=== PATIENT | female | born 1970 | race Caucasian/White ===

== ENCOUNTER 2017-07-25 12:46 | Emergency (ER) | payer MEDICARE, MEDICAID ==
--- NOTE | 2017-07-25 13:15 | RAD ---
FRONTAL VIEW CHEST: COMPARISON: 08/21/15. INDICATION: Chest pain. FINDINGS: There is no consolidation, effusion, or pneumothorax. Cardiac silhouette is mildly prominent. No si gnificant vascular congestion. No additional significant interval change. IMPRESSION: 1. No focal consolidation. 2. Prominent cardiac silhouette. Correlate clinically. POS: [facility]
[2017-07-25] MEDS ORDERED: Lidocaine Viscous Sol 2% 15 ml UD Cup ONE (13:27)
[2017-07-25] MEDS ORDERED: Mag-Al Plus 1200 MG/1200 MG/120 MG/30 ML UDCUP ONE (13:28)
[2017-07-25 13:31] LABS: #Basophils 0.1 thou/uL (0.0-0.2); #Lymphocytes 2.1 thou/uL (1.20-3.40); #Monocytes 0.9 thou/uL (0.11-0.59); #Neutrophils 8.3 thou/uL (1.40-6.50); %Eosinophils 0.3 % (0.0-10.0); %Lymphocytes 18.2 % (21.0-51.0); %Neutrophils 72.5 % (42.0-75.0); Hemoglobin 14.2 g/dL (12.0-16.0); Mean Corpuscular HGB CONC 32.8 g/dL (32.0-36.0); Mean Corpuscular Hemoglobin 27.5 pg (27.0-31.0); Mean Platelet Volume 8.2 fL (7.4-10.4); Platelet Count 327 thou/uL (130-400); RBC Distribution Width 13.1 % (11.5-14.5); Red Blood Cell (RBC) Count 5.17 mill/uL (4.20-5.40); White Blood Cell (WBC) Count 11.4 thou/uL (4.8-10.8)
[2017-07-25 13:48] LABS: CKMB 0.7 ng/mL (0-6.6); Troponin I Less than 0.010 ng/mL (< 0.028)
[2017-07-25 14:14] LABS: ALT (SGPT) 48 U/L (8-55); AST (SGOT) 33 U/L (5-34); Albumin 4.2 g/dL (3.5-5.0); Alkaline Phosphatase 50 U/L (40-150); Anion Gap 21 mmol/L (10-20); BUN (Urea Nitrogen) 43 mg/dL (7.0-18.7); Bilirubin, Total 0.3 mg/dL (0.2-1.2); CK (CPK) 21 U/L (29-168); Calc. Creatinine Clearance 0 mL/min (70-130); Calcium 9.8 mg/dL (7.8-10.44); Carbon Dioxide 22 mmol/L (22-29); Chloride 99 mmol/L (98-107); Estimated GFR-MDRD 41; Globulin 3.1 g/dL (2.4-3.5); Glucose 134 mg/dL (70-105); Lipase 51 U/L (8-78); Protein, Total 7.3 g/dL (6.0-8.3); Sodium 137 mmol/L (136-145)
[2017-07-25 16:55] LABS: Anion Gap 18 mmol/L (10-20)
[2017-07-25 17:02] LABS: Troponin I Less than 0.010 ng/mL (< 0.028)
[2017-07-25 17:06] LABS: BUN (Urea Nitrogen) 39 mg/dL (7.0-18.7); Calc. Creatinine Clearance 0 mL/min (70-130); Calcium 8.2 mg/dL (7.8-10.44); Carbon Dioxide 22 mmol/L (22-29); Chloride 105 mmol/L (98-107); Estimated GFR-MDRD 54; Glucose 51 mg/dL (70-105); Potassium 4.9 mmol/L (3.5-5.1); Sodium 140 mmol/L (136-145)
== END 2017-07-25 17:37 | disposition home or self-care (01) ==
LOC: SCSER 12:46
DX: R07.2 Precordial pain (principal); E11.9 Type 2 diabetes mellitus without complications; F32.9 Major depressive disorder, single episode, unspecified; M19.90 Unspecified osteoarthritis, unspecified site; Q90.9 Down syndrome, unspecified; Z79.82 Long term (current) use of aspirin; Z79.84 Long term (current) use of oral hypoglycemic drugs; Z79.899 Other long term (current) drug therapy
CPT/HCPCS: 71045; 80053; 82550; 82553; 83690; 84484; 85025; 93005; 96360; 96361

== ENCOUNTER 2017-10-11 18:59 | Emergency (ER) | payer MEDICARE, MEDICAID ==
[2017-10-11 19:40] LABS: Bilirubin Negative (Negative); Blood, Urine Negative (Negative); Clarity CLOUDY (Clear); Glucose, Urine (Dipstick) 100 mg/dL (Negative); Leukocyte Small (Negative); Nitrite Positive (Negative); Protein, Urine (Dipstick) Negative (Neg-Trace); Urobilinogen 0.2 mg/dL (0.2-1.0)
[2017-10-11 19:43] LABS: Bacteria/HPF 4+ HPF (None Seen); Hyaline Casts/LPF 0-3 HYALINE CAST LPF (0-3 Hyaline); Pathc Cast-AUWi Flag 0.14 (0-2.49); RBC/HPF 0-3 HPF (0-3); Squamous Epithelial 0-3 HPF (0-3); WBC/HPF 21-50 HPF (0-3)
[2017-10-11 20:11] LABS: #Eosinphils 0.1 thou/uL (0.0-0.7); #Lymphocytes 1.2 thou/uL (1.20-3.40); #Monocytes 0.6 thou/uL (0.11-0.59); #Neutrophils 8.4 thou/uL (1.40-6.50); %Basophils 0.4 % (0.0-1.0); %Eosinophils 1.3 % (0.0-10.0); %Lymphocytes 11.3 % (21.0-51.0); %Monocytes 5.5 % (0.0-10.0); %Neutrophils 81.6 % (42.0-75.0); Hemoglobin 11.2 g/dL (12.0-16.0); Mean Corpuscular HGB CONC 32.8 g/dL (32.0-36.0); Mean Corpuscular Volume 91.5 fl (81.0-99.0); Mean Platelet Volume 7.8 fL (7.4-10.4); Platelet Count 230 thou/uL (130-400); RBC Distribution Width 13.7 % (11.5-14.5); Red Blood Cell (RBC) Count 3.73 mill/uL (4.20-5.40); White Blood Cell (WBC) Count 10.3 thou/uL (4.8-10.8)
[2017-10-11 20:32] LABS: ALT (SGPT) 18 U/L (8-55); AST (SGOT) 13 U/L (5-34); Albumin 4.2 g/dL (3.5-5.0); Alkaline Phosphatase 27 U/L (40-150); Anion Gap 15 mmol/L (10-20); BUN (Urea Nitrogen) 20 mg/dL (7.0-18.7); Bilirubin, Total 0.2 mg/dL (0.2-1.2); Calc. Creatinine Clearance 0 mL/min (70-130); Calcium 9.4 mg/dL (7.8-10.44); Carbon Dioxide 21 mmol/L (22-29); Chloride 105 mmol/L (98-107); Estimated GFR-MDRD 56; Globulin 2.7 g/dL (2.4-3.5); Glucose 224 mg/dL (70-105); Lipase 48 U/L (8-78); Potassium 4.9 mmol/L (3.5-5.1); Protein, Total 6.9 g/dL (6.0-8.3); Sodium 136 mmol/L (136-145)
[2017-10-11] MEDS ORDERED: Ondansetron HCl/PF 4 MG/2 ML Vial ONE (21:49)
== END 2017-10-11 22:58 | disposition home or self-care (01) ==
LOC: ERS 18:59
DX: N39.0 Urinary tract infection, site not specified (principal); E11.9 Type 2 diabetes mellitus without complications; G40.909 Epilepsy, unspecified, not intractable, without status epilepticus; F32.9 Major depressive disorder, single episode, unspecified
CPT/HCPCS: 36415; 80053; 81003; 81015; 83605; 83690; 85025; 87077; 87086; 87186; 96361; 96374; 96375; J0696; J2405

== ENCOUNTER 2018-03-30 10:43 | Outpatient (CLI) | payer MEDICARE, MEDICAID | END 2018-03-30 10:44 | disposition home or self-care (01) | LOC: BICMAMMO 10:43 | PROVIDERS: ATTEND Family Medicine | DX: Z12.31 Encounter for screening mammogram for malignant neoplasm of breast (principal); R92.1 Mammographic calcification found on diagnostic imaging of breast | CPT/HCPCS: 77063; 77067 ==

== ENCOUNTER 2019-03-22 09:20 | Inpatient (IN) | payer MEDICARE, MEDICAID ==
[2019-03-22] MEDS ORDERED: Ketorolac Tromethamine 30 MG/ML VIAL ONE (09:41)
[2019-03-22 09:58] LABS: #Lymphocytes 0.8 thou/uL (1.20-3.40); #Monocytes 0.9 thou/uL (0.11-0.59); #Neutrophils 9.7 thou/uL (1.40-6.50); %Basophils 0.4 % (0.0-1.0); %Monocytes 7.7 % (0.0-10.0); %Neutrophils 84.9 % (42.0-75.0); Hemoglobin 11.5 g/dL (12.0-16.0); Mean Corpuscular HGB CONC 31.7 g/dL (32.0-36.0); Mean Corpuscular Hemoglobin 27.2 pg (27.0-31.0); Mean Corpuscular Volume 85.8 fL (78.0-98.0); Mean Platelet Volume 6.6 fL (7.4-10.4); Platelet Count 202 thou/uL (130-400); RBC Distribution Width 14.2 % (11.5-14.5); Red Blood Cell (RBC) Count 4.24 mill/uL (4.20-5.40); White Blood Cell (WBC) Count 11.5 thou/uL (4.8-10.8)
[2019-03-22 10:03] LABS: Bilirubin Small (Negative); Blood, Urine Moderate (Negative); Clarity Slightly Cloudy (Clear); Glucose, Urine (Dipstick) Negative (Negative); Leukocyte Small (Negative); Nitrite Negative (Negative); Protein, Urine (Dipstick) 30 mg/dL (Neg-Trace); Urobilinogen 0.2 mg/dL (Less than 2)
[2019-03-22 10:05] LABS: BHCG - Serum Negative (NEGATIVE); Pregs Control Background? CLEAR/WHITE (CLR/WHITE); Pregs Control Bar Appear? YES (CONTROL BAR)
[2019-03-22 10:09] LABS: ALT (SGPT) 14 U/L (8-55); AST (SGOT) 9 U/L (5-34); Albumin 4.2 g/dL (3.5-5.0); Alkaline Phosphatase 47 U/L (40-150); Anion Gap 20 mmol/L (10-20); BUN (Urea Nitrogen) 18 mg/dL (7.0-18.7); Bilirubin, Total 0.5 mg/dL (0.2-1.2); Calc. Creatinine Clearance 0 mL/min (70-130); Calcium 10.3 mg/dL (7.8-10.44); Carbon Dioxide 26 mmol/L (22-29); Chloride 98 mmol/L (98-107); Estimated GFR-MDRD 51; Glucose 190 mg/dL (70-105); Lipase 20 U/L (8-78); Potassium 4.8 mmol/L (3.5-5.1); Protein, Total 7.2 g/dL (6.0-8.3); Sodium 139 mmol/L (136-145)
[2019-03-22 10:11] LABS: Bacteria/HPF 3+ HPF (None Seen); Epithelial Cast None Seen LPF (None Seen); Squamous Epithelial 0-3 HPF (0-3)
[2019-03-22] MEDS ORDERED: Iopamidol 370 76% 100 ML VIAL ONE (10:48)
--- NOTE | 2019-03-22 11:00 | CT ---
CT Abdomen Pelvis W Con: 03/22/2019 9:42 AM CLINICAL INFORMATION: Abdominal pain and fever COMPARISON: 04/23/2016 TECHNIQUE: Multiple contiguous axial images were obtained and a CT of the abdomen and pelvis with IV contrast. C oronal and sagittal reformats were performed. FINDINGS: Lower Chest: within normal limits. Abdomen: Liver: within normal limits. Bile Ducts: Normal caliber. Gallbladder: No calcified gallstones. Normal caliber wall. Pancreas: within normal limits. Spleen: within normal limits. Adrenals: within normal limits. Kidneys: Stranding changes seen adjacent to the right kidney which could be secondary to pyelonephrit is. No significant abnormal nephrogram is seen at this time. A small subcentimeter hypodensity in the right kidney likely represents a small cyst. Pelvis: Reproductive Organs: No pelvic masses. Ureters: within normal limits. Bladder: within normal limits. Peritoneum: No ascites or free air, no fluid collection. Bowel: Normal caliber. Normal appendix. Mesentery and Retroperitoneum: No enlarged mesenteric or retroperitoneal lymph nodes. Vessels: Normal. Abdominal Wall: within normal limits. Bones: Degenerative changes in the spine. IMPRESSION: 1. Possible right pyelonephritis. Correlate with urinalysis. 2. Right renal cyst
[2019-03-22] MEDS ORDERED: cefTRIAXone\\ROCEPHIN 1 GM VIAL ONE (11:14)
[2019-03-22] MEDS ORDERED: Sodium Chloride 0.9% 100 ML ONE (11:15)
[2019-03-22] MEDS ORDERED: Sodium Chloride 0.9% 0 ML ONE (11:15)
[2019-03-22 14:46] VITALS: BMI 30.2
[2019-03-22] MEDS ORDERED: Ondansetron ODT 4 MG TAB SL PRN (15:03)
[2019-03-22] MEDS ORDERED: Ondansetron PF 4 MG/2 ML Vial IVP PRN ×2 (15:03→17:55)
[2019-03-22] MEDS ORDERED: Acetaminophen 325 MG TAB PO PRN (15:03)
[2019-03-22] MEDS ORDERED: Lactated Ringer's 1,000 ML IV SCH (15:15)
[2019-03-22] MEDS ORDERED: Ondansetron ODT 4 MG TAB PO PRN (17:55)
[2019-03-22] MEDS ORDERED: Acetaminophen 650 MG Suppository PR PRN (17:55)
[2019-03-22] MEDS ORDERED: Alendronate Sodium 70 mg Tablet PO SCH (18:00)
[2019-03-22] MEDS ORDERED: Sodium Chloride 0.9% 1,000 ML IV SCH (18:15)
[2019-03-22] MEDS ORDERED: Famotidine/PF 20 mg/2ml Vial SLOW IVP SCH (21:00)
[2019-03-22] MEDS ORDERED: Non-Formulary Item 1 EACH (Lovastatin [Lovastatin] 20 MG) PO SCH (21:00)
[2019-03-22] MEDS ORDERED: HumaLOG 300 UNITS/3 ML VIAL SC PRN ×2 (21:03)
[2019-03-22] MEDS ORDERED: Dextrose 50% Abboject 50 ML SYRINGE SLOW IVP PRN (21:03)
[2019-03-22] MEDS ORDERED: Dextrose 5% in Water 1,000 ML IV PRN (21:03)
[2019-03-22] MEDS: Ammonium Lactate 12% Lotion 225 GM BOT TOP SCH (21:24)
[2019-03-22] MEDS: Simvastatin 5 MG TAB PO SCH (21:25)
[2019-03-22] MEDS: Acetaminophen 325 MG TAB PO PRN (21:25)
[2019-03-22] MEDS: Fluticasone Propionate Nasal Spray 16 gm Bottle NASAL SCH (21:25)
[2019-03-22] MEDS: DULoxetine 60 MG CAP PO SCH (21:25)
[2019-03-22] MEDS: CeleCOXIB 100 MG CAP PO SCH (21:25)
[2019-03-22] MEDS: Metoprolol Tartrate 100 MG TAB PO SCH (21:25)
--- NOTE | 2019-03-22 21:59 | HP ---
PRIMARY CARE PHYSICIAN: Dr. Melvin Padilla. CHIEF COMPLAINT: "Feeling sick." HISTORY OF PRESENT ILLNESS: Ms. Paulson is a very pleasant 48-year-old woman, with mild learning disability, but is fully oriented and able to communicate. The patient states she started to feel unwell yesterday evening. Reports having pain on her right side. States she has felt nauseous since yesterday evening, but has not had any vomiting. According to her sister, she has known chronic kidney disease and tends to do poorly about taking an enough fluid intake unless prompted. She is a resident . She was reported to have had a fever this morning of 101.2, therefore brought to the emergency department. In the ER, she was complaining of right lower quadrant discomfort. She underwent laboratory studies, which were notable for an elevated white count of 11.5, creatinine of 1.14, slightly bumped from previous laboratory studies done. GFR appeared stable at 51. Lactic acid was normal at 1.7. LFTs unremarkable and lipase also normal. A urinalysis was done and showed 30 of protein, trace ketones, moderate blood, small bilirubin, small leukocyte esterase, 4 to 6 red blood cells, 7 to 10 white blood cells, 3+ urine bacteria. The patient underwent a CT of the abdomen and pelvis, which demonstrated a possible right pyelonephritis as well as a right renal cyst. The patient was given Toradol for her pain, which she states brought the pain down from a 6/10 in severity to a 2/10. She was started on Rocephin 1 g IV. In the emergency department, her vitals remained stable and her temperature improved to 98.6. She was given IV fluids as well. An EKG was done showing sinus tachycardia with a heart rate of 111. ST segments are normal and there were no T-wave abnormalities. She has remained slightly tachycardic in the low 100s before coming up to the floor. PAST MEDICAL HISTORY: 1. Mild MR. 2. Type 2 diabetes mellitus. 3. Osteoporosis. 4. History of seizures, controlled with medications. 5. History of UTI/pyelonephritis. 6. Depression. PAST SURGICAL HISTORY: Toenail removal. ALLERGIES: NO KNOWN DRUG ALLERGIES. CURRENT MEDICATIONS: 1. Alendronate sodium. 2. Ammonium lactate cream. 3. Aspirin. 4. Calcium citrate. 5. Celecoxib. 6. Vitamin D3. 7. Duloxetine. 8. Fenofibrate. 9. Flonase. 10. Glimepiride. 11. Ipratropium. 12. Losartan. 13. Lovastatin. 14. Metformin. 15. Metoprolol. 16. Multivitamin. 17. Pantoprazole. 18. Phenytoin. 19. Florastor. PHYSICAL EXAMINATION: GENERAL: The patient appears to be in no acute distress. She is resting comfortably in bed. HEENT: Normocephalic and atraumatic. Pupils are reactive to light. Sclerae without icterus. Oropharynx notable for poor dentition and stomatitis. Oral mucosa is dry. NECK: Supple. No tenderness to palpation. No cervical spine tenderness. Full range of motion. LUNGS: Clear to auscultation without wheezes, rales, or rhonchi. CARDIAC: Regular rate and rhythm. ABDOMEN: Soft. Mild discomfort with palpation to the right flank region. No guarding or rigidity. EXTREMITIES: No lower leg swelling or edema. NEUROLOGIC: Alert and oriented x3. SKIN: Without rash or jaundice. Does feel warm. VITAL SIGNS: Temperature 99, pulse 110, respirations 21, O2 saturations 94% on room air, blood pressure 120/76. INVESTIGATIONS: As mentioned above in HPI. IMPRESSION AND PLAN: Ms. Paulson is a pleasant 48-year-old woman, who presents with complaints of right flank pain and fever. She is being referred for management of the following. 1. Right pyelonephritis. We will continue IV antibiotics and give IV fluids. Urinalysis done, but urine culture is pending. Previous urine cultures were positive for Escherichia coli and pansensitive to antibiotics. The patient also dehydrated. Again, we will continue with gentle IV hydration and monitor renal function. 2. Tachycardia, likely associated with her low-grade fever. We will give Tylenol and monitor. We will also obtain a baseline chest x-ray to rule out any underlying pneumonia. 3. Hypertension. We will resume home medications once verified. Monitor blood pressure. 4. Diabetes mellitus. We will hold medications given acute kidney injury. We will initiate insulin sliding scale. 5. Gastrointestinal prophylaxis. We will resume her home dose of Protonix. 6. Deep venous thrombosis prophylaxis. Mechanical SCDs. 7. Code status, full. Her surrogate decision maker is her sister. I asked for her name and she stated it is listed in the chart. Unfortunately, I have not been able to locate her name on file. The patient's case was discussed with attending, who agrees with the plan of care as described above. Job ID: [id number]
--- NOTE | 2019-03-22 22:54 | RAD ---
RADIOGRAPH CHEST 2 VIEWS: DATE: 03/22/2019 HISTORY: 48-year-old female with cough and tachycardia FINDINGS: There is no airspace density, pulmonary edema, pleural effusion, pneumothorax, or cardiomegaly. Mild blunting of the posterior costophrenic angles demonstrated on the lateral view is due to fat pads at the posterior pleural diaphragmatic interface is as demonstrated on the abdominal CT this morning, and should not be mistaken for tiny bilateral pleural effusions. IMPRESSION: No acute cardiopulmonary findings.
[2019-03-23] MEDS: Sodium Chloride 0.9% 1,000 ML IV SCH ×2 (05:37→09:40)
[2019-03-23] MEDS ORDERED: Non-Formulary Item 1 EACH (Fenofibrate [Fenofibrate] 160 MG) PO SCH (09:00)
[2019-03-23] MEDS: Saccharomyces boulardii 250 MG CAP PO SCH (09:38)
[2019-03-23] MEDS: Aspirin 81 mg Enteric Coated Tablet PO SCH (09:38)
[2019-03-23] MEDS: Fenofibrate Nanocrystallized 145 MG TAB PO SCH (09:38)
[2019-03-23] MEDS: Calcium Citrate 950 MG TAB PO SCH (09:39)
[2019-03-23] MEDS: Metoprolol Tartrate 100 MG TAB PO SCH ×2 (09:39→20:10)
[2019-03-23] MEDS: Fluticasone Propionate Nasal Spray 16 gm Bottle NASAL SCH ×2 (09:41→20:18)
[2019-03-23 10:42] LABS: #Eosinphils 0.1 thou/uL (0.0-0.7); #Lymphocytes 0.5 thou/uL (1.20-3.40); #Monocytes 0.6 thou/uL (0.11-0.59); #Neutrophils 6.2 thou/uL (1.40-6.50); %Basophils 0.4 % (0.0-1.0); %Eosinophils 0.8 % (0.0-10.0); %Lymphocytes 6.9 % (21.0-51.0); %Monocytes 8.4 % (0.0-10.0); %Neutrophils 83.5 % (42.0-75.0); Hemoglobin 10.9 g/dL (12.0-16.0); Mean Corpuscular HGB CONC 32.5 g/dL (32.0-36.0); Mean Corpuscular Hemoglobin 28.3 pg (27.0-31.0); Mean Corpuscular Volume 87.1 fL (78.0-98.0); Mean Platelet Volume 7.7 fL (7.4-10.4); Platelet Count 186 thou/uL (130-400); RBC Distribution Width 13.5 % (11.5-14.5); Red Blood Cell (RBC) Count 3.87 mill/uL (4.20-5.40); White Blood Cell (WBC) Count 7.5 thou/uL (4.8-10.8)
[2019-03-23 10:55] LABS: Anion Gap 15 mmol/L (10-20); BUN (Urea Nitrogen) 13 mg/dL (7.0-18.7); Calc. Creatinine Clearance 75 mL/min (70-130); Calcium 8.8 mg/dL (7.8-10.44); Carbon Dioxide 20 mmol/L (22-29); Chloride 103 mmol/L (98-107); Estimated GFR-MDRD 65; Glucose 141 mg/dL (70-105); Sodium 134 mmol/L (136-145)
[2019-03-23] MEDS ORDERED: Mag-Al 1200 mg/1200 mg/30 ML UDCUP PO SCH (11:00)
[2019-03-23] MEDS: cefTRIAXone\\ROCEPHIN 1 GM in Sodium Chloride 0.9% 100 ML IVPB SCH (12:21)
--- NOTE | 2019-03-23 15:07 | PDOC.HOSPP ---
- Subjective Encounter Date: 03/23/19 Encounter Time: 08:00 Subjective: still has nausea, no abd pain ate her breakfast sister at bedside - Objective Vital Signs & Weight: Vital Signs (12 hours) Temp Pulse Resp BP BP Pulse Ox 03/23/19 12:00 98 F 100 16 98/57 L 94 L 03/23/19 08:00 94 L 03/23/19 07:43 98.8 F 98 17 104/63 94 L 03/23/19 04:00 98.2 F 95 18 106/66 91 L Weight Weight 140 lb I&O: 03/22/19 03/23/19 03/24/19 06:59 06:59 06:59 Intake Total 5 240 Balance 2094 240 Result Diagrams: 03/23/19 10:29 03/23/19 10:29 Additional Labs: Accuchecks 03/23/19 03/23/19 03/22/19 12:02 04:36 19:36 POC Glucose 148 H 123 H 163 H Hospitalist ROS - Medication Medications: Active Medications Generic Name Dose Route Start Last Admin Trade Name Freq PRN Reason Stop Dose Admin Acetaminophen 650 mg 03/22/19 17:55 03/22/19 21:25 Tylenol PO 650 mg Q4H PRN Administration Headache/Fever/Mild Pain (1-3) Ammonium Lactate 0 gm 03/22/19 21:00 03/22/19 21:24 Laclotion TOP 1 gm HS RAMIRO Administration Aspirin 81 mg 03/23/19 09:00 03/23/19 09:38 Ecotrin PO 81 mg DAILY RAMIRO Administration Calcium Citrate 950 mg 03/23/19 09:00 03/23/19 09:39 Calcium Citrate PO 950 mg DAILY RAMIRO Administration Celecoxib 200 mg 03/22/19 21:00 03/22/19 21:25 Celebrex PO 200 mg HS RAMIRO Administration Duloxetine HCl 60 mg 03/22/19 21:00 03/22/19 21:25 Cymbalta PO 60 mg QPM RAMIRO Administration Fenofibrate 145 mg 03/23/19 09:00 03/23/19 09:38 Tricor PO 145 mg DAILY RAMIRO Administration Fluticasone Propionate 0 gm 03/22/19 21:00 03/23/19 09:41 Flonase Nasal Bruno NASAL 1 spr BID RAMIRO Administration Ceftriaxone Sodium 1 gm/ 100 mls @ 200 mls/hr 03/23/19 11:30 03/23/19 12:21 Sodium Chloride IVPB 100 mls Q24HR RAMIRO Administration Sodium Chloride 1,000 mls @ 65 mls/hr 03/22/19 21:08 03/23/19 09:40 Normal Saline 0.9% IV 1,000 mls .[id number] RAMIRO Administration Metoprolol Tartrate 100 mg 03/22/19 21:00 03/23/19 09:39 Lopressor PO 100 mg BID RAMIRO Administration Pantoprazole Sodium 40 mg 03/23/19 09:00 03/23/19 09:38 Protonix PO 40 mg DAILY RAMIRO Administration Phenytoin Sodium 300 mg 03/23/19 09:00 03/23/19 09:38 Dilantin Er PO 300 mg QAM RAMIRO Administration Saccharomyces Boulardii 250 mg 03/23/19 09:00 03/23/19 09:38 Florastor PO 250 mg DAILY RAMIRO Administration Simvastatin 10 mg 03/22/19 21:00 03/22/19 21:25 Zocor PO 10 mg HS RAMIRO Administration - Exam General Appearance: NAD, awake alert Eye: PERRL, anicteric sclera ENT: no oropharyngeal lesions, dry oral mucosa Neck: supple, no JVD Heart: RRR, no murmur Respiratory: no wheezes, no rales Gastrointestinal: soft, non-tender, normal bowel sounds Extremities: no cyanosis, no edema Neurological: CN's grossly intact, no focal deficits Hosp A/P (1) Pyelonephritis Code(s): N12 - TUBULO-INTERSTITIAL NEPHRITIS, NOT SPCF ACUTE OR CHRONIC Status: Acute (2) Sepsis Code(s): A41.9 - SEPSIS, UNSPECIFIED ORGANISM Status: Acute Qualifiers: Sepsis type: Escherichia coli (3) DM type 2 (diabetes mellitus, type 2) Status: Chronic Qualifiers: Diabetes mellitus senior living insulin use: without senior living use (4) Obesity (BMI 30.0-34.9) Code(s): E66.9 - OBESITY, UNSPECIFIED Status: Chronic (5) Seizure disorder Code(s): G40.909 - EPILEPSY, UNSP, NOT INTRACTABLE, WITHOUT STATUS EPILEPTICUS Status: Chronic (6) Dyslipidemia Code(s): E78.5 - HYPERLIPIDEMIA, UNSPECIFIED Status: Chronic (7) Down syndrome Code(s): Q90.9 - DOWN SYNDROME, UNSPECIFIED Status: Chronic (8) Hypertension Code(s): I10 - ESSENTIAL (PRIMARY) HYPERTENSION Status: Chronic Qualifiers: Hypertension type: essential hypertension Qualified Code(s): I10 - Essential (primary) hypertension - Plan is on ceftriaxone await full culture results, prelim is growing klebsiella/enterobacter continue iv fluids x 24hrs encourage po intake to ambulate as tolerated in hallway continue asp, cozaar, lopressor, zocor, tricor, phenytoin, cymbalta
[2019-03-23] MEDS: Losartan 25 MG TAB PO SCH (16:46)
[2019-03-23] MEDS: Simvastatin 5 MG TAB PO SCH (20:10)
[2019-03-23] MEDS: CeleCOXIB 100 MG CAP PO SCH (20:10)
[2019-03-23] MEDS: DULoxetine 60 MG CAP PO SCH (20:10)
[2019-03-23] MEDS: Acetaminophen 325 MG TAB PO PRN (20:11)
[2019-03-23] MEDS: Ammonium Lactate 12% Lotion 225 GM BOT TOP SCH (20:18)
[2019-03-24] MEDS: Sodium Chloride 0.9% 1,000 ML IV SCH (03:40)
[2019-03-24 08:03] VITALS: BP 106/68; TEMP 98
[2019-03-24] MEDS: Aspirin 81 mg Enteric Coated Tablet PO SCH (08:42)
[2019-03-24] MEDS: Saccharomyces boulardii 250 MG CAP PO SCH (08:42)
[2019-03-24] MEDS: Fenofibrate Nanocrystallized 145 MG TAB PO SCH (08:42)
[2019-03-24] MEDS: Fluticasone Propionate Nasal Spray 16 gm Bottle NASAL SCH (08:43)
[2019-03-24] MEDS: Losartan 25 MG TAB PO SCH (08:43)
[2019-03-24] MEDS: Metoprolol Tartrate 100 MG TAB PO SCH (08:43)
[2019-03-24] MEDS: Calcium Citrate 950 MG TAB PO SCH (08:53)
[2019-03-24] MEDS: cefTRIAXone\\ROCEPHIN 1 GM in Sodium Chloride 0.9% 100 ML IVPB SCH (14:01)
--- NOTE | 2019-03-24 15:17 | DIS ---
DATE OF ADMISSION: 03/22/2019 DATE OF DISCHARGE: 03/24/2019 DISCHARGE DISPOSITION: [facility]. PRIMARY DISCHARGE DIAGNOSES: Pyelonephritis, sepsis, both resolving. SECONDARY DISCHARGE DIAGNOSES: Diabetes mellitus type 2, history of mild intellectual disability with Down syndrome, dyslipidemia, seizure disorder, obesity, hypertension. PROCEDURES DONE DURING HOSPITALIZATION: Chest x-ray done showed no acute cardiopulmonary abnormality. CT abdomen and pelvis with contrast done showed right pyelonephritis. Urine culture grew Klebsiella pneumoniae sensitive to all antibiotics except Macrobid. Blood cultures x2, no growth. Stool for Campylobacter and Shiga toxin were negative. Hemoglobin and hematocrit 11 and 33, platelet count 186. White count of 7.5, BUN 13, creatinine 0.9. Serum test was negative. DISCHARGE MEDICATIONS: 1. Fosamax 70 mg p.o. once weekly. 2. Aspirin 81 mg p.o. daily. 3. Calcium citrate 600 mg p.o. daily. 4. Celecoxib 200 mg p.o. at bedtime. 5. Vitamin D3 2000 units p.o. daily. 6. Duloxetine 60 mg p.o. q.p.m. 7. Fenofibrate 160 mg p.o. daily. 8. Glimepiride 1 mg p.o. q.a.m. 9. Losartan 25 mg p.o. daily. 10. Lovastatin 20 mg p.o. at bedtime. 11. Metformin 1000 mg twice daily. 12. Metoprolol 100 mg p.o. twice daily. 13. Multivitamin one tablet once daily. 14. Protonix 40 mg p.o. daily. 15. Phenytoin extended-release 300 mg p.o. q.a.m. 16. Levaquin 500 mg p.o. daily for another 6 days. 17. Florastor 250 mg p.o. daily. ALLERGIES: NO KNOWN DRUG ALLERGIES. DISCHARGE PLAN: The patient to follow up with her primary care physician in 1 week. BRIEF COURSE DURING HOSPITALIZATION: [facility] after she was feeling sick. She also had a temperature 101.2 degrees. Initial workup in the ER revealed right-sided pyelonephritis with urinary tract infection and sepsis. The patient was pancultured and was admitted to medical floor. She has had fluid resuscitation done due to moderate dehydration as well. Her cultures grew Klebsiella sensitive to all antibiotics except Macrobid. She was on IV antibiotics, which has been transitioned to Levaquin for another 6 days. She has started to eat like before with no nausea or vomiting. She has not had any abdominal pain on the day of discharge. She was placed on her home medications and is hemodynamically stable. Please note, I have seen and examined the patient on the day of discharge. She is hemodynamically stable and will be shortly [facility] to [facility]. Job ID: [id number] MTDD
== END 2019-03-24 15:16 | disposition home or self-care (01) | DRG 872 ==
LOC: SCSER 09:20 → T4-A 14:21
PROVIDERS: ADMIT Internal Medicine; ATTEND Internal Medicine
DX: A41.9 Sepsis, unspecified organism (principal); N10 Acute pyelonephritis; E11.9 Type 2 diabetes mellitus without complications; M81.0 Age-related osteoporosis without current pathological fracture; G40.909 Epilepsy, unspecified, not intractable, without status epilepticus; E78.5 Hyperlipidemia, unspecified; F32.9 Major depressive disorder, single episode, unspecified; F70 Mild intellectual disabilities; B96.1 Klebsiella pneumoniae [K. pneumoniae] as the cause of diseases classified elsewhere; Z16.24 Resistance to multiple antibiotics; E66.9 Obesity, unspecified; Q90.9 Down syndrome, unspecified; Z79.899 Other long term (current) drug therapy; Z79.82 Long term (current) use of aspirin; Z79.84 Long term (current) use of oral hypoglycemic drugs; Z68.30 Body mass index [BMI] 30.0-30.9, adult
CPT/HCPCS: 36415; 36416; 71046; 74177; 80048; 80053; 81003; 81015; 83605; 83630; 83690; 84703; 85025; 87040; 87045; 87046; 87077; 87086; 87186; 87328; 87329; 87427; 87449; 93005; 96361; 96365; 96375; J0696; J1885; J3490; Q9967

== ENCOUNTER 2019-08-17 08:54 | Outpatient (CLI) | payer MEDICARE, MEDICAID ==
--- NOTE | 2019-08-18 10:12 | MMO ---
Bilateral MAMMO Bilat Screen [facility]PANK[facility]. CLINICAL HISTORY: Patient is 49 years old and is seen for screening. The patient has no family history of breast cancer. The patient has no personal history of cancer. VIEWS: The views performed were: bilateral craniocaudal with tomosynthesis and bilateral mediolateral oblique with tomosynthesis. FILMS COMPARED: The present examination has been compared to prior imaging studies performed at [facility] on 02/08/2015, 02/14/2016, 03/26/2017 and 03/30/2018. This study has been interpreted with the assistance of computer-aided detection. MAMMOGRAM FINDINGS: The breasts are heterogeneously dense, which could obscure a lesion on mammography. There are no suspicious masses, suspicious calcifications, or new areas of architectural distortion. IMPRESSION: THERE IS NO MAMMOGRAPHIC EVIDENCE OF MALIGNANCY. A ROUTINE FOLLOW-UP MAMMOGRAM IN 1 YEAR IS RECOMMENDED. THE RESULTS OF THIS EXAM WERE SENT TO THE PATIENT. ACR BI-RADS Category 1 - Negative MAMMOGRAPHY NOTE: 1. A negative mammogram report should not delay a biopsy if a dominant of clinically suspicious mass is present. 2. Approximately 10% to 15% of breast cancers are not detected by mammography. 3. Adenosis and dense breasts may obscure an underlying neoplasm. Reported by: MONA MENDEZ MD Electonically Signed: [id number]
== END 2019-08-17 08:55 | disposition home or self-care (01) ==
LOC: BICMAMMO 08:54
PROVIDERS: ATTEND Family Medicine
DX: Z12.31 Encounter for screening mammogram for malignant neoplasm of breast (principal)
CPT/HCPCS: 77063; 77067

== ENCOUNTER 2020-09-20 10:20 | Outpatient (CLI) | payer MEDICARE, MEDICAID | END 2020-09-20 10:21 | disposition home or self-care (01) | LOC: BICMAMMO 10:20 | PROVIDERS: ATTEND Physician Assistant | DX: Z12.31 Encounter for screening mammogram for malignant neoplasm of breast (principal) | CPT/HCPCS: 77063; 77067 ==

== ENCOUNTER 2021-01-23 12:45 | Outpatient (CLI) | payer MEDICARE, MEDICAID | END 2021-01-23 12:46 | disposition home or self-care (01) | LOC: BICULT 12:45 | DX: N18.30 Chronic kidney disease, stage 3 unspecified (principal) | CPT/HCPCS: 76770 ==

== ENCOUNTER 2021-12-11 09:52 | Outpatient (CLI) | payer MEDICARE, MEDICAID | END 2021-12-11 09:53 | disposition home or self-care (01) | LOC: BICMAMMO 09:52 | PROVIDERS: ATTEND Physician Assistant | DX: Z12.31 Encounter for screening mammogram for malignant neoplasm of breast (principal) | CPT/HCPCS: 77063; 77067 ==

== ENCOUNTER 2023-03-19 10:41 | Outpatient (CLI) | payer MEDICARE, MEDICAID | END 2023-03-19 10:42 | disposition home or self-care (01) | LOC: BICMAMMO 10:41 | PROVIDERS: ATTEND Physician Assistant | DX: Z12.31 Encounter for screening mammogram for malignant neoplasm of breast (principal) | CPT/HCPCS: 77063; 77067 ==

== ENCOUNTER 2025-01-09 22:01 | Observation (INO) | payer MEDICARE, MEDICAID ==
[~2025-01-09 22:01] MED LIST: Iopamidol-370 76% 500 ML MDV (1 ML CHARGE) ONE
[2025-01-09 23:38] LABS: #Basophils Less than 0.03 10x3/uL (0.0-0.2); #Eosinophils 0.04 10x3/uL (0.0-0.7); #Monocytes 0.77 10x3/uL (0.11-0.59); #Neutrophils 5.90 10x3/uL (1.40-6.50); %Basophils 0.3 % (0.0-1.0); %Eosinophils 0.5 % (0.0-10.0); %Lymphocytes 14.1 % (21.0-51.0); %Monocytes 9.7 % (0.0-10.0); %Neutrophils 74.1 % (42.0-75.0); Hematocrit 32.5 % (36.0-47.0); Hemoglobin 10.6 g/dL (12.0-16.0); Mean Corpuscular Hemoglobin 31.0 pg (27.0-31.0); Mean Corpuscular Volume 95.0 fL (78.0-98.0); Platelet Count 254 10x3/uL (130-400); Red Blood Cell (RBC) Count 3.42 mill/uL (4.20-5.40); White Blood Cell (WBC) Count 7.95 10x3/uL (4.8-10.8)
[2025-01-10 00:16] LABS: ALT (SGPT) 12 U/L (Less than 34); AST (SGOT) 22 U/L (11-34); Albumin 3.6 g/dL (3.1-4.5); Alkaline Phosphatase 25 U/L (40-110); Anion Gap 15 mmol/L (10-20); BUN (Urea Nitrogen) 51 mg/dL (9.8-20.1); Bilirubin, Total 0.5 mg/dL (0.3-1.2); Calc. Creatinine Clearance 0 mL/min (70-130); Calcium 9.0 mg/dL (7.8-10.44); Carbon Dioxide 26 mmol/L (22-29); Chloride 102 mmol/L (98-107); Globulin 3.0 g/dL (2.4-3.5); Glucose 99 mg/dL (70-105); Potassium 6.4 mmol/L (3.5-5.1); Sodium 137 mmol/L (136-145)
[2025-01-10] MEDS ORDERED: CALCIUM GLUC 1 GM/NS 50 ML IV Bag ONE (00:40)
[2025-01-10 04:44] LABS: ALT (SGPT) 10 U/L (Less than 34); AST (SGOT) 20 U/L (11-34); Albumin 2.8 g/dL (3.1-4.5); Alkaline Phosphatase 18 U/L (40-110); Anion Gap 11 mmol/L (10-20); BUN (Urea Nitrogen) 47 mg/dL (9.8-20.1); Bilirubin, Total 0.3 mg/dL (0.3-1.2); Calc. Creatinine Clearance 0 mL/min (70-130); Calcium 8.1 mg/dL (7.8-10.44); Carbon Dioxide 22 mmol/L (22-29); Chloride 109 mmol/L (98-107); Globulin 2.3 g/dL (2.4-3.5); Glucose 56 mg/dL (70-105); Potassium 5.7 mmol/L (3.5-5.1); Sodium 136 mmol/L (136-145)
[2025-01-10] MEDS ORDERED: Senokot S 8.6-50 MG TAB PO PRN (07:42)
[2025-01-10] MEDS ORDERED: Ondansetron PF 4 MG/2 ML Vial IVP PRN (07:42)
[2025-01-10] MEDS ORDERED: Dextrose 50% Abboject 50 ML SYRINGE SLOW IVP PRN (08:52)
[2025-01-10] MEDS ORDERED: Glucagon 1 MG/ML KIT IM PRN (08:52)
[2025-01-10] MEDS: Phenytoin Extended Release 100 MG CAP PO SCH (09:29)
[2025-01-10] MEDS: Pantoprazole 40 MG DR.TAB PO SCH (09:29)
[2025-01-10 09:51] LABS: Anion Gap 12 mmol/L (10-20); BUN (Urea Nitrogen) 40 mg/dL (9.8-20.1); Calc. Creatinine Clearance 0 mL/min (70-130); Calcium 8.5 mg/dL (7.8-10.44); Carbon Dioxide 21 mmol/L (22-29); Chloride 110 mmol/L (98-107); Glucose 146 mg/dL (70-105); Potassium 5.6 mmol/L (3.5-5.1); Sodium 137 mmol/L (136-145)
[2025-01-10 10:18] VITALS: BMI 25.6
[2025-01-10] MEDS: LOKELMA 10 GM PACKET PO SCH (12:05)
[2025-01-10] MEDS: Acetaminophen 325 MG TAB PO PRN (12:09)
[2025-01-10 18:32] LABS: Anion Gap 10 mmol/L (10-20); BUN (Urea Nitrogen) 33 mg/dL (9.8-20.1); Calc. Creatinine Clearance 36 mL/min (70-130); Calcium 7.9 mg/dL (7.8-10.44); Carbon Dioxide 23 mmol/L (22-29); Chloride 107 mmol/L (98-107); Glucose 217 mg/dL (70-105); Potassium 4.9 mmol/L (3.5-5.1); Sodium 135 mmol/L (136-145)
[2025-01-10] MEDS: Calcium Carbonate 500 MG ChewTAB PO PRN (18:33)
[2025-01-11] MEDS: LOKELMA 10 GM PACKET PO SCH (00:35)
[2025-01-11 04:53] LABS: #Basophils Less than 0.03 10x3/uL (0.0-0.2); #Eosinophils 0.06 10x3/uL (0.0-0.7); #Monocytes 0.39 10x3/uL (0.11-0.59); #Neutrophils 2.77 10x3/uL (1.40-6.50); %Basophils 0.2 % (0.0-1.0); %Eosinophils 1.5 % (0.0-10.0); %Lymphocytes 19.8 % (21.0-51.0); %Monocytes 9.5 % (0.0-10.0); %Neutrophils 67.5 % (42.0-75.0); Hematocrit 27.9 % (36.0-47.0); Hemoglobin 8.8 g/dL (12.0-16.0); Mean Corpuscular Hemoglobin 29.7 pg (27.0-31.0); Mean Corpuscular Volume 94.3 fL (78.0-98.0); Platelet Count 185 10x3/uL (130-400); Red Blood Cell (RBC) Count 2.96 mill/uL (4.20-5.40); White Blood Cell (WBC) Count 4.10 10x3/uL (4.8-10.8)
[2025-01-11 05:11] LABS: Anion Gap 10 mmol/L (10-20); BUN (Urea Nitrogen) 24 mg/dL (9.8-20.1); Calc. Creatinine Clearance 42 mL/min (70-130); Calcium 7.7 mg/dL (7.8-10.44); Carbon Dioxide 30 mmol/L (22-29); Chloride 101 mmol/L (98-107); Glucose 148 mg/dL (70-105); Potassium 3.7 mmol/L (3.5-5.1); Sodium 137 mmol/L (136-145)
[2025-01-11] MEDS: Losartan 25 MG TAB PO SCH (08:54)
[2025-01-11] MEDS: Cholecalciferol 1,000 UNITS (25 MCG) TAB PO SCH (08:54)
[2025-01-11] MEDS: Aspirin 81 mg Enteric Coated Tablet PO SCH (08:54)
[2025-01-11] MEDS ORDERED: Non-Formulary Item 1 EACH (Fluticasone Propionate [Flonase Allergy Relief] 9.9 ML Bottle) EA NARE SCH (09:00)
[2025-01-11] MEDS ORDERED: MAGNESIUM PO SCH (09:00)
[2025-01-11] MEDS ORDERED: Non-Formulary Item 1 EACH (Cholecalciferol (Vitamin D3) [Vitamin D3] 2,000 UNIT Tablet) PO SCH (09:00)
[2025-01-11] MEDS ORDERED: [UNRECOGNIZED DRUG - OTHER] PO SCH (09:00)
[2025-01-11] MEDS ORDERED: MAGNESIUM OXIDE PO SCH (09:00)
[2025-01-11] MEDS: Calcium Citrate 950 MG (200MG) TAB PO SCH (10:50)
[2025-01-11] MEDS: metFORMIN 500 MG TAB PO SCH (16:27)
[2025-01-11] MEDS ORDERED: Non-Formulary Item 1 EACH (Metformin Hcl [Metformin Hcl] 1,000 MG Tablet) PO SCH (17:00)
[2025-01-11] MEDS ORDERED: Non-Formulary Item 1 EACH (Fenofibrate [Fenofibrate] 160 MG Tablet) PO SCH (21:00)
[2025-01-11] MEDS ORDERED: AMMONIUM LACTATE TOP SCH (21:00)
[2025-01-11] MEDS: Rosuvastatin 20 MG TAB PO SCH (21:11)
[2025-01-12] MEDS: Ammonium Lactate 12% Lotion 225 GM BOT TOP SCH (08:57)
[2025-01-12 11:18] VITALS: BP 133/84; TEMP 98.3
== END 2025-01-12 13:08 | disposition home health service (06) ==
LOC: ERS 22:01 → ERHOLD 01-10 05:50 → OBS 01-10 08:18
PROVIDERS: ADMIT Internal Medicine; ATTEND Emergency Medicine
DX: S32.2XXA Fracture of coccyx, initial encounter for closed fracture (principal); N17.9 Acute kidney failure, unspecified; I12.9 Hypertensive chronic kidney disease with stage 1 through stage 4 chronic kidney disease, or unspecified chronic kidney disease; N18.30 Chronic kidney disease, stage 3 unspecified; E11.22 Type 2 diabetes mellitus with diabetic chronic kidney disease; E87.20 Acidosis, unspecified; E87.5 Hyperkalemia; D63.1 Anemia in chronic kidney disease; Q90.9 Down syndrome, unspecified; Z79.84 Long term (current) use of oral hypoglycemic drugs; Z79.899 Other long term (current) drug therapy; W18.30XA Fall on same level, unspecified, initial encounter
CPT/HCPCS: 71260; 73502; 74177; 80048 ×2; 80053 ×2; 82088; 82533; 82962 ×3; 85025 ×2; 93005; 97116; 97530 ×2; J0613; J2272; J3010; J7030; J7070 ×2; Q0162; Q9967; 36415; 36416; 96361; 96365; 96375; 96376; G0378

== ENCOUNTER 2025-02-20 10:45 | Inpatient (IN) | payer MEDICARE, MEDICAID ==
[~2025-02-20 10:45] MED LIST changes: +Iopamidol 370 76% 100 ML VIAL ONE; -Iopamidol-370 76% 500 ML MDV (1 ML CHARGE) ONE
[2025-02-20] MEDS ORDERED: Prochlorperazine 10 MG/2 ML VIAL ONE (11:23)
[2025-02-20] MEDS ORDERED: diphenhydrAMINE 50 MG/ML VIAL ONE (11:23)
[2025-02-20 11:52] LABS: #Basophils Less than 0.03 10x3/uL (0.0-0.2); #Eosinophils Less than 0.03 10x3/uL (0.0-0.7); #Monocytes 0.26 10x3/uL (0.11-0.59); #Neutrophils 2.81 10x3/uL (1.40-6.50); %Basophils 0.2 % (0.0-1.0); %Eosinophils 0.2 % (0.0-10.0); %Lymphocytes 21.8 % (21.0-51.0); %Monocytes 6.4 % (0.0-10.0); %Neutrophils 68.9 % (42.0-75.0); Hematocrit 29.9 % (36.0-47.0); Hemoglobin 9.7 g/dL (12.0-16.0); Mean Corpuscular Hemoglobin 31.2 pg (27.0-31.0); Mean Corpuscular Volume 96.1 fL (78.0-98.0); Platelet Count 219 10x3/uL (130-400); Red Blood Cell (RBC) Count 3.11 mill/uL (4.20-5.40); White Blood Cell (WBC) Count 4.08 10x3/uL (4.8-10.8)
[2025-02-20 12:08] LABS: INR-International Normal Ratio 1.0; Prothrombin Time 12.8 sec (12.0-14.7)
[2025-02-20 12:09] LABS: PTT 23.6 sec (22.9-36.1)
[2025-02-20 12:21] LABS: Troponin I Less than 0.010 ng/mL (< 0.028)
[2025-02-20 12:27] LABS: ALT (SGPT) 12 U/L (Less than 34); AST (SGOT) 20 U/L (11-34); Albumin 3.0 g/dL (3.1-4.5); Alkaline Phosphatase 28 U/L (40-110); Anion Gap 14 mmol/L (10-20); BUN (Urea Nitrogen) 28 mg/dL (9.8-20.1); Bilirubin, Total 0.5 mg/dL (0.3-1.2); Calc. Creatinine Clearance 0 mL/min (70-130); Calcium 8.6 mg/dL (7.8-10.44); Carbon Dioxide 23 mmol/L (22-29); Chloride 101 mmol/L (98-107); Globulin 2.8 g/dL (2.4-3.5); Glucose 189 mg/dL (70-105); Lipase 34 U/L (8-78); Magnesium 1.9 mg/dL (1.6-2.6); Potassium 6.4 mmol/L (3.5-5.1); Sodium 132 mmol/L (136-145)
[2025-02-20] MEDS ORDERED: Calcium Chloride 1 GM/10 ML Abboject SYRINGE ONE (12:31)
[2025-02-20] MEDS ORDERED: Albuterol 2.5 MG (0.5 mL) NEB ONE (12:32)
[2025-02-20] MEDS ORDERED: Albuterol 2.5 MG (3 mL) NEB ONE (12:32)
[2025-02-20] MEDS ORDERED: Dextrose 50% Abboject 50 ML SYRINGE ONE (12:32)
[2025-02-20] MEDS ORDERED: CALCIUM GLUC 1 GM/NS 50 ML IV Bag ONE (12:32)
[2025-02-20 12:50] LABS: Actual Bicarbonate (HCO3a) 23.7 mEq/L (22-28); Analyzer IN Cardio ER; Base Excess (BEa) -1.3 mEq/L (-2.0 to +3.0); CO2 Tension 40.7 mmHg (35.0-45.0); Calcium, Ionized (arterial) 1.52 mmol/L (1.12-1.30); Hematocrit-ABG 29 % (36.0-47.0); Hemoglobin (Hb) 9.8 g/dL (12.0-16.0); O2 Tension (PaO2), arterial 344.4 mmHg (80.0-100.0); Potassium - ABG Lab 5.46 mmol/L (3.70-5.30); pH, Arterial 7.383 (7.35-7.45)
[2025-02-20] MEDS ORDERED: Dextrose 50% Abboject 50 ML SYRINGE SLOW IVP PRN (15:04)
[2025-02-20] MEDS ORDERED: Glucagon 1 MG/ML KIT IM PRN (15:04)
[2025-02-20] MEDS ORDERED: Melatonin 3 MG TAB PO PRN (15:07)
[2025-02-20] MEDS ORDERED: Senokot S 8.6-50 MG TAB PO PRN (15:07)
[2025-02-20 15:51] LABS: Anion Gap 12 mmol/L (10-20); BUN (Urea Nitrogen) 24 mg/dL (9.8-20.1); Calc. Creatinine Clearance 0 mL/min (70-130); Calcium 9.9 mg/dL (7.8-10.44); Carbon Dioxide 26 mmol/L (22-29); Chloride 104 mmol/L (98-107); Glucose 58 mg/dL (70-105); Potassium 5.5 mmol/L (3.5-5.1); Sodium 136 mmol/L (136-145)
[2025-02-20] MEDS: LOKELMA 10 GM PACKET PO SCH (16:08)
[2025-02-20 16:16] VITALS: BMI 24.7
[2025-02-20] MEDS: Phenytoin Extended Release 100 MG CAP PO SCH (20:58)
[2025-02-21 06:10] LABS: #Basophils Less than 0.03 10x3/uL (0.0-0.2); #Eosinophils 0.06 10x3/uL (0.0-0.7); #Monocytes 0.45 10x3/uL (0.11-0.59); #Neutrophils 2.85 10x3/uL (1.40-6.50); %Basophils 0.4 % (0.0-1.0); %Eosinophils 1.3 % (0.0-10.0); %Lymphocytes 23.0 % (21.0-51.0); %Monocytes 9.8 % (0.0-10.0); %Neutrophils 61.8 % (42.0-75.0); Hematocrit 28.5 % (36.0-47.0); Hemoglobin 8.9 g/dL (12.0-16.0); Mean Corpuscular Hemoglobin 31.3 pg (27.0-31.0); Mean Corpuscular Volume 100.4 fL (78.0-98.0); Platelet Count 181 10x3/uL (130-400); Red Blood Cell (RBC) Count 2.84 mill/uL (4.20-5.40); White Blood Cell (WBC) Count 4.61 10x3/uL (4.8-10.8)
[2025-02-21 06:23] LABS: Anion Gap 13 mmol/L (10-20); BUN (Urea Nitrogen) 19 mg/dL (9.8-20.1); Calc. Creatinine Clearance 43 mL/min (70-130); Calcium 9.1 mg/dL (7.8-10.44); Carbon Dioxide 24 mmol/L (22-29); Chloride 106 mmol/L (98-107); Glucose 106 mg/dL (70-105); Potassium 5.1 mmol/L (3.5-5.1); Sodium 138 mmol/L (136-145)
[2025-02-21] MEDS ORDERED: Pantoprazole 40 MG DR.TAB PO SCH (09:00)
[2025-02-21] MEDS ORDERED: Aspirin 81 mg Enteric Coated Tablet PO SCH (09:00)
[2025-02-21] MEDS: Aspirin 81 mg Enteric Coated Tablet PO SCH (09:59)
[2025-02-21] MEDS: Enoxaparin 40 MG (0.4 mL) SYRINGE SC SCH (09:59)
[2025-02-21] MEDS: Pantoprazole 40 MG DR.TAB PO SCH (10:02)
[2025-02-21] MEDS: Acetaminophen 325 MG TAB PO PRN (10:53)
[2025-02-21 15:30] VITALS: BP 130/94; TEMP 97.6
[2025-02-21] MEDS ORDERED: Rosuvastatin 20 MG TAB PO SCH (21:00)
[2025-02-21] MEDS ORDERED: Phenytoin Extended Release 100 MG CAP PO SCH (21:00)
== END 2025-02-21 18:25 | disposition home or self-care (01) | DRG 683 ==
LOC: ERS 10:45 → 2NO 13:11
PROVIDERS: ADMIT Family Medicine; ATTEND Internal Medicine
DX: N17.9 Acute kidney failure, unspecified (principal); E87.1 Hypo-osmolality and hyponatremia; E87.20 Acidosis, unspecified; E87.5 Hyperkalemia; E86.0 Dehydration; I34.0 Nonrheumatic mitral (valve) insufficiency; E11.9 Type 2 diabetes mellitus without complications; M19.90 Unspecified osteoarthritis, unspecified site; G40.909 Epilepsy, unspecified, not intractable, without status epilepticus; K29.50 Unspecified chronic gastritis without bleeding; I10 Essential (primary) hypertension; I44.7 Left bundle-branch block, unspecified; Q90.9 Down syndrome, unspecified; Z98.890 Other specified postprocedural states; Z87.440 Personal history of urinary (tract) infections; M81.0 Age-related osteoporosis without current pathological fracture; F32.A Depression, unspecified; N83.209 Unspecified ovarian cyst, unspecified side; D64.9 Anemia, unspecified
CPT/HCPCS: 36415; 36416; 70450; 70496; 70498; 80048; 80053; 82805; 83605; 83690; 83735; 83880; 84484; 85025; 85610; 85730; 93005; 96361; 96374; 96375; J0613; J0780; J1200; J1650; J1815; J7030; J7611; J7999; Q9967

== ENCOUNTER 2025-02-23 13:21 | Emergency (ER) | payer MEDICARE, MEDICAID ==
[2025-02-23 15:16] LABS: #Basophils Less than 0.03 10x3/uL (0.0-0.2); #Eosinophils Less than 0.03 10x3/uL (0.0-0.7); #Monocytes 0.63 10x3/uL (0.11-0.59); #Neutrophils 5.56 10x3/uL (1.40-6.50); %Basophils 0.1 % (0.0-1.0); %Eosinophils 0.3 % (0.0-10.0); %Lymphocytes 14.8 % (21.0-51.0); %Monocytes 8.4 % (0.0-10.0); %Neutrophils 73.9 % (42.0-75.0); Hematocrit 29.8 % (36.0-47.0); Hemoglobin 9.7 g/dL (12.0-16.0); Mean Corpuscular Hemoglobin 30.8 pg (27.0-31.0); Mean Corpuscular Volume 94.6 fL (78.0-98.0); Platelet Count 303 10x3/uL (130-400); Red Blood Cell (RBC) Count 3.15 mill/uL (4.20-5.40); White Blood Cell (WBC) Count 7.52 10x3/uL (4.8-10.8)
[2025-02-23 15:55] LABS: ALT (SGPT) 10 U/L (Less than 34); AST (SGOT) 17 U/L (11-34); Albumin 3.1 g/dL (3.1-4.5); Alkaline Phosphatase 31 U/L (40-110); Anion Gap 14 mmol/L (10-20); BUN (Urea Nitrogen) 20 mg/dL (9.8-20.1); Bilirubin, Total 0.6 mg/dL (0.3-1.2); Calc. Creatinine Clearance 0 mL/min (70-130); Calcium 8.7 mg/dL (7.8-10.44); Carbon Dioxide 23 mmol/L (22-29); Chloride 100 mmol/L (98-107); Globulin 2.8 g/dL (2.4-3.5); Glucose 116 mg/dL (70-105); Magnesium 1.2 mg/dL (1.6-2.6); Potassium 4.9 mmol/L (3.5-5.1); Sodium 132 mmol/L (136-145)
[2025-02-23 16:25] LABS: CAUTI Indications for Culture Pelvic or flank pain; Glucose, Urine (Dipstick) Normal (Negative); Leukocyte Negative Leu/uL (Negative); Protein, Urine (Dipstick) Negative (Neg-Trace); RBC/HPF 0-3 HPF (0-3); Specific Gravity, Urine 1.012 (1.002-1.036); WBC/HPF 0-3 HPF (0-3)
[2025-02-23 16:27] LABS: Bacteria/HPF 1+ HPF (None Seen); Urine Culture Reflex No No
[2025-02-23] MEDS ORDERED: Magnesium 2 GM/50 ML BAG (IN WATER) ONE (16:35)
== END 2025-02-23 17:50 | disposition home or self-care (01) ==
LOC: ERS 13:21
DX: E83.42 Hypomagnesemia (principal); D53.9 Nutritional anemia, unspecified; I12.9 Hypertensive chronic kidney disease with stage 1 through stage 4 chronic kidney disease, or unspecified chronic kidney disease; E11.22 Type 2 diabetes mellitus with diabetic chronic kidney disease; N18.9 Chronic kidney disease, unspecified
CPT/HCPCS: 70450; 70486; 80053; 81001; 83735; 85025; 96361; 96365; 99284; J3475; 36415